=== PATIENT | male | born 1965 | race Caucasian/White ===

== ENCOUNTER 2022-07-14 13:20 | Emergency (ER) | payer OTHER, SELFPAY ==
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
[2022-07-14 13:21] VITALS: BP 160/146; PULSE 106; RESP 18; TEMP 36.8; O2SAT 97
[2022-07-14 13:39] VITALS: BP 78/58; PULSE 106; RESP 18; O2SAT 95
--- NOTE | 2022-07-14 13:44 | ECG_ITS ---
Measurements Intervals [place] Rate: 92 P: 85 MS: 123 QRS: 86 QRSD: 77 T: 68 QT: 335 QTc: 416 Interpretive Statements SINUS RHYTHM WITHIN NORMAL LIMITS NO PREVIOUS ECG AVAILABLE FOR COMPARISON Electronically Signed On 07-15-2022 8:26:24 HYDRO GENERATION MANAGER by Yaakov Carnes M.D.
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
[2022-07-14] MEDS: SODIUM CHLORIDE 0.9% IV 1,000 ML 999 ML IV CONT ×2 (14:07→16:03)
[2022-07-14 14:25] LABS: Basophils Percent Auto 0.3 % (0.2-1.2); Eosinophils Absolute Auto 0.1 K/mm3 (0-0.3); Eosinophils Percent Auto 0.6 % (0-4.4); Hematocrit 37.7 % (42.0-52.0); Hemoglobin 12.4 g/dL (14.0-18.0); Immature Granulocyte Absolute 0.15 K/mm3 (0.00-0.031); Immature Granulocyte Percent A 1.1 % (0-0.5); Lymphocytes Absolute Auto 2.02 K/mm3 (0.9-3.2); Lymphocytes Percent Auto 14.6 % (18.3-44.2); Mean Corpuscular HGB Conc 32.9 g/dl (32-36); Mean Corpuscular Hemoglobin 33.2 pg (26-34); Mean Corpuscular Volume 101.1 fl (80-100); Mean Platelet Volume 9.5 fl (7.4-10.4); Monocytes Absolute Auto 0.8 K/mm3 (0.1-0.6); Monocytes Percent Auto 5.5 % (2.6-8.5); Neutrophils Absolute Auto 10.8 K/mm3 (1.3-6.7); Neutrophils Percent Auto 77.9 % (45.5-73.1); Platelet Count Result 156 k/mm3 (150-375); Red Blood Count 3.73 M/mm3 (4.6-6.20); Red Cell Distribution Width 13.9 % (11.5-14.5); White Blood Count 13.8 K/mm3 (4.5-10.0)
[2022-07-14 14:35] LABS: Alanine Aminotransferase 16 U/L (6-50); Albumin Level 3.7 g/dL (3.5-5.1); Alkaline Phosphatase 88 U/L (38-126); Anion Gap 6 mmol/L (8-16); Aspartate Amino Transferase 25 U/L (17-59); Bilirubin,Total 0.2 mg/dL (0.2-1.3); Blood Urea Nitrogen 14 mg/dL (9-20); Calcium 7.7 mg/dL (8.4-10.2); Carbon Dioxide 24 mmol/L (22-30); Chloride 101 mmol/L (98-107); Estimated CRCL calculation 49 ml/min; Estimated Glomerular Filt Rate > 60; Glucose 184 mg/dL (65-110); Potassium 3.3 mmol/L (3.4-5.0); Sodium 131 mmol/L (137-145)
[2022-07-14] MEDS: TRANEXAMIC ACID 1,000 MG/10 ML AMPUL 1000 MG IV PUSH (15:58)
[2022-07-14] MEDS: SODIUM CHLORIDE 0.9% IV 250 ML 30 ML IV CONT (16:00)
[2022-07-14] MEDS: ONDANSETRON INJ 4 MG/2 ML VIAL IV PUSH (16:03)
[2022-07-14] MEDS: TUBING, BLOOD SET 1 EACH XX (16:03)
--- NOTE | 2022-07-14 16:03 | PC.NURSE ---
O negative unit [id number] verbally check with assembly instructions writer and JEREMIAH Telles. Unit started and infused wide open due to patient condition.
[2022-07-14 16:06] LABS: INR 1.3; Prothrombin Time 15.5 Seconds (11.1-14.7)
[2022-07-14 16:07] LABS: Partial Thromboplastin Time 42.5 SECONDS (22.3-36.8)
--- NOTE | 2022-07-14 16:10 | PC.NURSE ---
O negative unit [id number] finished infusing. Second unit [id number] send with [facility] flight crew to infuse en route to [facility].
[2022-07-14 16:18] VITALS: BP 148/68; PULSE 116; RESP 18; O2SAT 100
== END 2022-07-14 16:18 | disposition short-term general hospital (02) ==
PROVIDERS: Emergency Provider Nurse Practitioner Family
DX: S36.031A Moderate laceration of spleen, initial encounter (principal); V49.88XA Car occupant (driver) (passenger) injured in other specified transport accidents, initial encounter; Y92.410 Unspecified street and highway as the place of occurrence of the external cause
CPT/HCPCS: 36415; 36430; 70450; 71260; 72125; 74177; 80053; 85025; 85610; 85730; 86850; 86900; 86901; 86920; 93005; 96361; 96374; 96375; 99285; J2405; J7030; J7050; L0140; P9016; Q9967